=== PATIENT | male | born 1955 | race Caucasian/White ===

== ENCOUNTER 2019-05-07 06:09 | Outpatient (RCR) | payer MEDICAID, SELFPAY | END 2019-05-07 23:59 | disposition home or self-care (01) | LOC: ONCMED 06:09 | PROVIDERS: Family Provider Nurse Practitioner; PCP Licensed Practical Nurse; Visit Provider Internal Medicine Medical Oncology | DX: C22.0 Liver cell carcinoma (principal); Z86.19 Personal history of other infectious and parasitic diseases; K59.00 Constipation, unspecified; M54.9 Dorsalgia, unspecified; N20.0 Calculus of kidney; N40.0 Benign prostatic hyperplasia without lower urinary tract symptoms; Z92.3 Personal history of irradiation; Z86.711 Personal history of pulmonary embolism; Z79.01 Long term (current) use of anticoagulants; Z79.891 Long term (current) use of opiate analgesic; Z79.899 Other long term (current) drug therapy; Z92.21 Personal history of antineoplastic chemotherapy | CPT/HCPCS: 99214 ==

== ENCOUNTER 2019-06-03 16:45 | Emergency (ER) | payer SELFPAY | END 2019-06-03 21:00 | disposition home or self-care (01) | PROVIDERS: Family Provider Nurse Practitioner | DX: K59.00 Constipation, unspecified (principal); I10 Essential (primary) hypertension; Z85.89 Personal history of malignant neoplasm of other organs and systems; Z87.891 Personal history of nicotine dependence; Z88.5 Allergy status to narcotic agent; Z92.21 Personal history of antineoplastic chemotherapy; Z85.05 Personal history of malignant neoplasm of liver | CPT/HCPCS: 74022; 99281 ==

== ENCOUNTER 2019-06-19 08:07 | Outpatient (CLI) | payer MEDICAID, SELFPAY ==
--- NOTE | 2019-06-19 08:17 | MR_ITS ---
WS: [id number] MRI THORACIC SPINE with and without contrast. HISTORY: LIVER CELL CARCINOMA W/BONE METS;RESTAGING EVALUATION COMPARISON: 04/10/2019 TECHNIQUE: Multiplanar sequences are performed in sagittal and axial planes. Pre and post imaging. Patient has known pathological fractures at T6 and T7. Extent of the fractures and tumor involvement has progressed. New metastatic disease within T5, the posterior T8, anterior T9 and T11 vertebral bod ies. There is also enhancement within the superior anterior endplate of L2. Marked increase in thoracic kyphosis centered at the T6-7 level. Significant progression of metastati c involvement within the vertebral bodies, epidural space and paravertebral soft tissues and osseous structures on the RIGHT. Progressive metastatic involvement centered at the RIGHT 6-8 costochondral m argins. Rib and soft tissue involvement. Largest of tissue metastatic necrotic mass measures 5.0 x 6. 2 x 3.9 cm. Involvement of the posterior elements of the RIGHT fifth, sixth, seventh and eighth verte bral bodies with extension into the foramen. Epidural enhancement along the RIGHT lateral margin exte nds over length of 4.4 cm. Mild flattening and deformity of the thecal sac. Soft soft tissue nodular enhancement and compression of the thoracic cord at the T7 level. Tumor nodularity measures 6.7 mm. A dditional bone and soft tissue involvement on the LEFT but to a lesser extent. Notified Tomás Pickard at 06/19/2019 10:56 AM. Unable to reach Dr. Pickard at this time. Message left Iv a, patient navigator at 10:55 AM. MR/MR thoracic spine wo/w [id number] IMPRESSION: 1. Significant progression of metastatic disease to the vertebral bodies, epid ural space and paravertebral soft tissues since 04/10/2019. 2. Metastatic involvement has progressed in T6 since T7 with progression of pa thological fractures. New metastatic disease at T5, T8, T9, T11 and L2. 3. Significant increase in size of the paravertebral mass centered on the RIGH T at T6-T8 now measuring 5.0 x 6.2 x 3.9 cm. 4. Significant progression of epidural involvement by tumor with compression o n the thoracic cord at the T6-7 level.
== END 2019-06-19 08:08 | disposition home or self-care (01) ==
LOC: RADSHAW 08:14 → ONCMED 17:20
PROVIDERS: Family Provider Nurse Practitioner; PCP Nurse Practitioner; Visit Provider Radiology Radiation Oncology
DX: C79.51 Secondary malignant neoplasm of bone (principal); C22.0 Liver cell carcinoma; M84.58XD Pathological fracture in neoplastic disease, other specified site, subsequent encounter for fracture with routine healing
CPT/HCPCS: 72157; 96372; A9579; J1170

== ENCOUNTER 2019-07-04 17:09 | Emergency (ER) | payer MEDICAID, SELFPAY ==
[2019-07-04 18:06] VITALS: BP 105/69; PULSE 118; RESP 20; TEMP 37.2; O2SAT 98; BMI 25.8
--- NOTE | 2019-07-04 18:46 | XR_ITS ---
WS: [id number] Acute abdomen series, 07/04/2019 Clinical Data: constipation Comparison: Acute abdomen series, 06/03/2019. Findings: In the chest there are no nodules or masses. The heart is normal. The pulmonary vascularit y is not increased. The right pleural effusion has diminished. The patient has had stabilizing rods p laced in the thoracic spine extending from T1 to T10. Surgical estella are also visible in the midlin e. The rods are bilateral. No free air is seen beneath the diaphragms. No abnormal intra-abdominal masses or calcifications are seen. There is air in the stomach, small bowel and colon. No obstruction is present. There is fecal m aterial throughout the colon especially in the rectum. XR/XR acute abdomen series [id number] Impression: 1. Decrease in small right effusion 2. Placement of bilateral stabilizing rods in the thoracic spine from T1 throug h T10. 3. Moderate generalized ileus. 4. Fecal material in the rectum.
[2019-07-04 19:09] LABS: Basophils % 0.3 %; Eosinophils % 0.3 %; Hemoglobin 10.4 g/dL (11.7-16.6); Lymphocytes # 0.4 10^3/uL (0.8-4.8); Lymphocytes % 5.4 %; Mean Corpuscular HGB Conc 31.5 g/dL (30.0-36.0); Mean Corpuscular Hemoglobin 28.5 pg (28.0-34.0); Mean Corpuscular Volume 90.4 fL (80-94); Mean Platelet Volume 9.7 fL (7.4-10.4); Monocytes # 0.8 10^3/uL (0.2-0.9); Monocytes % 9.9 %; Neutrophils # 6.5 10^3/uL (1.8-7.7); Neutrophils % 83.6 %; Nucleated Red Blood Cells % 0 %; Platelet Count 154 10^3/cmm (130-400); Red Blood Count 3.65 10^6/uL (4.1-5.3); Red Cell Distribution Width 14.6 % (12.1-15.1); White Blood Count 7.8 10^3/uL (4.0-10.0)
[2019-07-04 19:24] LABS: Alanine Aminotransferase 23 U/L (0-41); Albumin Level 3.2 g/dL (3.5-5.2); Alkaline Phosphatase 277 IU/L (40-130); Anion Gap 15.7 (5-19); Aspartate Amino Transferase 40 U/L (0-40); Blood Urea Nitrogen 10 mg/dL (8-23); Calcium 8.6 mg/dL (8.5-10.5); Carbon Dioxide 21 mmol/L (22-29); Chloride 96 mmol/L (98-107); Globulin 3.5 g/dL (1.3-4.6); Glomerular Filtration Rate 97.6 mL/min (90-130); Glucose 122 mg/dL (74-106); Potassium 4.7 mmol/L (3.5-5.1); Sodium 128 mmol/L (136-145); Total Bilirubin 0.8 mg/dL (0.15-1.2); Total Protein 6.7 g/dL (6.6-8.7)
[2019-07-04 20:01] VITALS: BP 111/67; PULSE 100; RESP 18; TEMP 36.4; O2SAT 99
--- NOTE | 2019-07-04 20:02 | ED_ITS ---
Entered by Arlene Sheth, acting as scribe for Helga Das Marian Jul 04, 2019 17:09 HPI - General Adult General: Chief complaint: General Medical Stated complaint: constipation *10 days Time Seen by Provider: 07/04/19 20:02 Source: patient and family Mode of arrival: ambulatory Limitations: no limitations History of Present Illness: HPI narrative: Mr. Isbell is a very nice 63-year-old male who comes in complaining of abdominal pain and constipation. He had spinal surgery on the of this month and had been covering as expected but he believes secondary to taking oxycodone he has been unable to have regular bowel movements. Patient states he feels very constipated. He denies any bowel or bladder incontinence, saddle anesthesia, numbness or weakne ss in his legs. He denies any fever. He states his back pain is minimal if any. He states his primary concern is that of not having a bowel movement. He is unaware of anything that makes this better or worse. He has a decreased appetite and he has not been vomiting. MD complaint: constipation Onset (ago): day(s) (6 days ago) Location: abdomen Radiation: non-radiation Severity: moderate Quality: constant Pain Consistency: constant Relieving factors: none Exacerbating factors: medication and movement Associated symptoms: Deny chest pain, confusion, diaphoresis, dyspnea, headache(s), malaise, nausea, rash, palpitations, syncope or vomiting Treatments prior to arrival: other (over counter stool softner) Review of Systems General: Reports: other (negative unless marked) Const: Denies: fever, chills, body aches, fatigue, malaise or diaphoresis Eyes: Denies: change in vision or blurry vision ENMT: Denies: throat pain, painful swallowing, hoarseness, ear pain, ear discharge, Change in hearing or nasal discharge Card: Denies: chest pain, palpitations, irregular heart rhythm, syncope, pre- syncope, shortness of breath on exertion or shortness of breath when lying down Resp: Denies: shortness of breath, productive cough, non-productive cough, wheezing, coughing up blood or chest congestion GI: Reports: abdominal pain and constipation; Denies: nausea, vomiting, vomiting blood, coffee grounds in vomit, diarrhea, cramping, blood in stool or black tarry stool : Denies: flank pain, difficulty urinating, painful urination, urinary frequency, urinary urgency, decreased urine ouput, urinary incontinence or blood in urine Musc: Denies: neck pain, back pain, extremity pain, extremity swelling, joint pain, joint swelling, joint warmth or joint stiffness Skin/Breast: Denies: rash, skin tenderness or yellow skin Neuro: Denies: headache, numbness in extremities, weakness in extremities, changes in sensation, lack of coordination, difficulty walking, dizziness, vertigo or confusion Endo: Denies: excessive thirst, tired all the time, cold intolerance, excessive sweating, flushing or hot flashes Abelardo/Lymph: Denies: easy bruising, easy bleeding, petechiae or enlarged lymph nodes All/Imm: Denies: hives, throat swelling, tongue swelling, facial swelling or acute wheezing PFSH ED PFSH: Statuses (acute, chronic, etc) shown below reflect problem list status as previously entered and may not be historically accurate Family History (Updated 06/17/19 @ 15:42 by Domonique Torres, RN) Family/Other CAD (coronary artery disease) Cancer Social History (Updated 06/17/19 @ 15:43 by Domonique Torres, RN) Smoking and tobacco status: never smoked Alcohol intake: never Marital status: Single Current occupational status: retired Physical Exam Const: COMMON NORMALS: no apparent distress, oriented x3, no limitations, healthy appearing and well nourished EXAM LIMITATIONS: no altered mental status GENERAL APPEARANCE: cooperative, well kempt and well developed ORIENTATION/CONSCIOUSNESS: Yes awake HENMT: COMMON NORMALS: normocephalic, head/scalp atraumatic, hearing grossly normal bilaterally, external ears normal, EAC's normal, external nose normal and moist oral mucous membranes HEAD & SCALP: normal to inspection, normocephalic and atraumatic FACE & SINUS: normal facial exam and face symmetric NOSE: external nose normal and nares normal EXTERNAL EAR: Yes external ears normal EXTERNAL AUDITORY CANAL: EAC's normal MOUTH: oral and palatal mucosa normal and tongue normal Eye: COMMON NORMALS: PERRL, EOMs intact bilaterally, conjunctivae normal and no scleral icterus GENERAL EYE: normal appearance of both eyes and normal light reflex CONJUNCTIVA: Yes conjunctivae normal SCLERA: sclerae normal CORNEA: Yes corneas normal PUPIL: Yes PERRL DIRECT OPHTHALMOSCOPY: Yes normal light reflex Neck/C-Spine: COMMON NORMALS: full ROM, no lymphadenopathy, supple, no meningeal signs and no JVD GENERAL: Yes normal visual inspection and Yes trachea midline CERVICAL SPINE: Yes cervical ROM normal Chest: COMMONS NORMALS: inspection of chest normal and palpation of chest normal Resp: COMMON NORMALS: normal respiratory effort, no retractions, no use of accessory muscles and clear to auscultation bilaterally EFFORT & INSPECTION: Yes able to speak in complete sentences AUSCULTATION: clear to auscultation bilaterally Cardio: COMMON NORMALS: no JVD, regular rate, regular rhythm, S1 normal heart sound, S2 normal heart sound, no gallops, no clicks, no murmurs and no rub JUGULAR VENOUS DISTENTION: no JVD RATE: regular rate RHYTHM: regular rhythm HEART SOUNDS: S1 normal and S2 normal GI: COMMON NORMALS: soft to palpation, non-tender, no hepatosplenomegaly and no masses INSPECTION: Yes normal to inspection PALPATION: Yes soft and Yes no hepatosplenomegaly : COMMON NORMALS: Yes no CVA tenderness BLADDER/KIDNEY EXAM: Yes no CVA tenderness Back/Pelvis: COMMON NORMALS: no CVA tenderness, thoracic and lumbar spine normal to inspection, no thoracic nor lumbar tenderness and thoraco-lumbar ROM normal Extremity: COMMON NORMALS: normal to inspection, full ROM, normal capillary refill, no joint enlargement, no clubbing, cyanosis or edema and no calf tenderness Neuro: COMMON NORMALS: oriented x3, CN's II-XII intact bilaterally, moves all extremities, no focal motor deficits and no sensory deficits noted MENINGEAL SIGNS: Yes no meningeal signs Psych: COMMON NORMALS: mental status grossly normal, thought process normal, cooperative, affect normal, speech normal and activity/motor behavior normal APPEARANCE: Yes well kempt SPEECH: Yes normal speech THOUGHT PROCESS: normal thought process Skin: COMMON NORMALS: no rashes or lesions noted, skin turgor normal, no jaundice, no petechiae and no mottling GENERAL SKIN EXAM: no rashes or lesions noted and turgor normal Course Vital Signs: Vital signs: Vital Signs Temperature 97.5 F L 07/04/19 20:01 Pulse Rate 86 07/04/19 22:00 Respiratory Rate 18 07/04/19 22:00 Blood Pressure 115/66 07/04/19 22:00 Pulse Oximetry 98 07/04/19 22:00 MDM - General Adult MDM Narrative: Medical decision making narrative: Mr. Barton is a nice 63-year-old male who comes in complaining of abdominal pain and constipation. He has known metastatic cancer and recently had a surgery to relieve a tumor off his spine. The differential diagnosis for this is extensive including bowel obstruction, constipation, ileus, volvulus, among many others. Based upon his CT he looks to have a severe constipation but there is no sign of obstruction. He has a stable focal narrowing in the proximal sigmoid colon but there is no definite obstruction. There is no sign of appendicitis. The patient thinks that his symptoms are likely caused by his oxycodone which is probably the case. He is also complaining of hemorrhoidal pain. I have given him lactulose here along with Anusol suppositories. The patient agrees to try this at home and also tried mag citrate [id number]. He understands he will probably have to begin MiraLAX daily while he is on the opiate pain medication. I see no sign of acute abdomen or any other life-threatening event at this time. The patient understands though he may get worse and if he does so he will need to return to the ER immediately for recheck. He will follow-up with his regular doctors or return here if he has any problems. At this time his vital signs are stable and his exam is improved and his pain is improved from arrival. Lab Data: Labs: Lab Results 07/04/19 07/04/19 07/04/19 Range/Units 18:55 18:55 18:55 WBC 7.8 (4.0-10.0) 10^3/ uL RBC 3.65 L (4.1-5.3) 10^6/u L Hgb 10.4 L (11.7-16.6) g/dL Hct 33.0 L (42.0-52.0) % MCV 90.4 (80-94) fL MCH 28.5 (28.0-34.0) pg MCHC 31.5 (30.0-36.0) g/dL RDW 14.6 (12.1-15.1) % Plt Count 154 (130-400) 10^3/c mm MPV 9.7 (7.4-10.4) fL Neut % (Auto) 83.6 % Lymph % (Auto) 5.4 % [place] % (Auto) 9.9 % Eos % (Auto) 0.3 % Baso % (Auto) 0.3 % Neut # (Auto) 6.5 (1.8-7.7) 10^3/u L Lymph # (Auto) 0.4 L (0.8-4.8) 10^3/u L [place] # (Auto) 0.8 (0.2-0.9) 10^3/u L Eos # (Auto) 0.0 (0.0-0.8) 10^3/u L Baso # (Auto) 0.0 (0.0-0.1) 10^3/u L Nucleated RBC % (a uto) 0 % Nucleated RBCs # 0.0 /100WBC Sodium 128 L (136-145) mmol/L Potassium 4.7 (3.5-5.1) mmol/L Chloride 96 L (98-107) mmol/L Carbon Dioxide 21 L (22-29) mmol/L Anion Gap 15.7 (5-19) BUN 10 (8-23) mg/dL Creatinine 0.8 (0.7-1.2) mg/dL GFR Calculation 97.6 (90-130) mL/min Glucose 122 H (74-106) mg/dL Calcium 8.6 (8.5-10.5) mg/dL Total Bilirubin 0.8 (0.15-1.2) mg/dL AST 40 (0-40) U/L ALT 23 (0-41) U/L Alkaline Phosphata se 277 H (40-130) IU/L Total Protein 6.7 (6.6-8.7) g/dL Albumin 3.2 L (3.5-5.2) g/dL Globulin 3.5 (1.3-4.6) g/dL Lipase 9 L (13-60) U/L Imaging Data^: CT Abd/Pel: Radiologist's impression: [address] [address] [address] Scan Report Signed Patient: Hernesto Isbell Unit #: [id number] : 1955 Age/Sex: 63 / M ADM Date: 07/04/19 Loc: ER Room/Bed: Attending Dr: Ordering Provider/Ordering MD: Helga Das DO Date of Service: 07/04/19 Procedure(s): CT abdomen pelvis w con* [id number] Accession Number(s): [id number] Report Number: [id number] PROCEDURE INFORMATION: Exam: CT Abdomen And Pelvis With Contrast Exam date and time: 07/04/2019 8:16 PM Age: 63 years old Clinical indication: Abdominal pain; Acute; Prior surgery; Surgery date: <1 month; Surgery type: Back TECHNIQUE: Imaging protocol: Computed tomography of the abdomen and pelvis with intravenous contrast. Total DLP: 513.16 mGy-cm Radiation optimization: All CT scans at this facility use at least one of these dose optimization techniques: automated exposure control; mA and/or kV adjustment per patient size (includes targeted exams where dose is matched to clinical indication); or iterative reconstruction. Contrast material: OMNI; Contrast volume: 95 ml; Contrast route: IV; COMPARISON: CT abdomen pelvis w con* [id number] 04/22/2019 8:34 PM FINDINGS: Pleural space: Right pleural effusion. Dependent atelectasis, right greater than left. Liver: Numerous low-density lesions throughout the liver have increased is size and number, the largest 2.8 cm in the left lobe. Gallbladder and bile ducts: Normal. No calcified stones. No ductal dilation. Pancreas: Normal. No ductal dilation. Spleen: Multiple low-density lesions in the spleen have increased in size and number, the largest 2.1 cm. Adrenals: Normal. No mass. Kidneys and ureters: Normal. No hydronephrosis. Stomach and bowel: Large quantity of stool throughout the colon to the rectum. Focal area of narrowing in the proximal sigmoid colon appears unchanged. The stomach and small bowel are normal. Appendix: The appendix is normal. Intraperitoneal space: Unremarkable. No free air. No significant fluid collection. Vasculature: Unremarkable. No abdominal aortic aneurysm. Lymph nodes: Unremarkable. No enlarged lymph nodes. Bladder: Unremarkable as visualized. Reproductive: Unremarkable as visualized. Bones/joints: Thoracic fusion hardware. No compression fracture. No lytic or blastic skeletal lesions. Soft tissues: Unremarkable. CT/CT abdomen pelvis w con* [id number] IMPRESSION: 1. Significantly worsened metastatic lesions in the liver and spleen. 2. Stable focal narrowing in the proximal sigmoid colon. Underlying neoplasm is not excluded. 3. Large amount of stool throughout the colon to the rectum, consistent with constipation. 4. Right pleural effusion. Radiation Dose CTDIVOL = (mGy): DLP = 513.16 (mGy-cm) Dictated By: Sandeep Rubio Signed By: Sandeep Rubio Signed Date/Time: 07/04/192213 DD/ 12 Discharge Plan Discharge Patient Disposition: Home, Self-Care Clinical Impression: Abdominal pain Qualifiers: Abdominal location: generalized Qualified Code(s): R10.84 - Generalized abdominal pain Constipation Qualifiers: Constipation type: drug induced constipation Qualified Code(s): K59.03 - Drug induced constipation Condition: Stable Prescriptions: New lactulose 20 gram/30 mL solution 30 gm PO DAILY PRN (Reason: constipation) Qty: 1200 RF: 0 Anusol-HC 25 mg suppository 25 mg WA DAILY PRN (Reason: hemorrhoids) Qty: 12 RF: 0 Discharge Orders: Discharge Order (Routine); Ordered 07/04/19 Ordered By: Helga Das Referrals: Mariajose Flores FNP [Family Provider] - 1-3 days Damir Mix MD [Primary Care Provider] - Discharge Diet: Advance as tolerated Discharge Activity: Increase activity as tolerated Patient Instructions: Constipation - Adult, Abdominal Pain (ED) Activity Restrictions/Additional Instructions: Please return to the ER immediately for any of the signs or symptoms listed on your discharge instruction sheets, worsening/changing of your symptoms, you are not getting better as quickly as expected, or for ANY other cause or concerns. If you have not had a bowel movement by tomorrow afternoon be certain to take mag citrate one half bottle to have a bowel movement. If you have not had a bowel movement within 2 hours drink the other half of the bottle. Coding Level of Care Code ED [facility] Attendant for Chg Fwd Exam Problem Focused The documentation recorded by the Domenic lindsey Bridget Annette, accurately reflects the service I personally performed and the decisions made by Thiago kay Eli N Jul 04, 2019 17:09
--- NOTE | 2019-07-04 20:03 | PC.NURSE ---
Introduced self to patient and initiated vital signs. Pt is A&O x 4 and agreeable. Pt states that the reason for the ER visit today is due to constipation. Pt states last BM 6 days ago. Pt also complaining of abdominal pain of 5/10. Reassured patient of needs and will continue to monitor. Awaiting provider at bedside.
--- NOTE | 2019-07-04 20:11 | CTR_ITS ---
PROCEDURE INFORMATION: Exam: CT Abdomen And Pelvis With Contrast Exam date and time: 07/04/2019 8:16 PM Age: 63 years old Clinical indication: Abdominal pain; Acute; Prior surgery; Surgery date: <1 month; Surgery type: Back TECHNIQUE: Imaging protocol: Computed tomography of the abdomen and pelvis with intravenous contrast. Total DLP: 513.16 mGy-cm Radiation optimization: All CT scans at this facility use at least one of these dose optimization techniques: automated exposure control; mA and/or kV adjustment per patient size (includes targeted exams where dose is matched to clinical indication); or iterative reconstruction. Contrast material: OMNI; Contrast volume: 95 ml; Contrast route: IV; COMPARISON: CT abdomen pelvis w con* [id number] 04/22/2019 8:34 PM FINDINGS: Pleural space: Right pleural effusion. Dependent atelectasis, right greater than left. Liver: Numerous low-density lesions throughout the liver have increased is size and number, the largest 2.8 cm in the left lobe. Gallbladder and bile ducts: Normal. No calcified stones. No ductal dilation. Pancreas: Normal. No ductal dilation. Spleen: Multiple low-density lesions in the spleen have increased in size and number, the largest 2.1 cm. Adrenals: Normal. No mass. Kidneys and ureters: Normal. No hydronephrosis. Stomach and bowel: Large quantity of stool throughout the colon to the rectum. Focal area of narrowing in the proximal sigmoid colon appears unchanged. The stomach and small bowel are normal. Appendix: The appendix is normal. Intraperitoneal space: Unremarkable. No free air. No significant fluid collection. Vasculature: Unremarkable. No abdominal aortic aneurysm. Lymph nodes: Unremarkable. No enlarged lymph nodes. Bladder: Unremarkable as visualized. Reproductive: Unremarkable as visualized. Bones/joints: Thoracic fusion hardware. No compression fracture. No lytic or blastic skeletal lesions. Soft tissues: Unremarkable. CT/CT abdomen pelvis w con* [id number] IMPRESSION: 1. Significantly worsened metastatic lesions in the liver and spleen. 2. Stable focal narrowing in the proximal sigmoid colon. Underlying neoplasm is not excluded. 3. Large amount of stool throughout the colon to the rectum, consistent with constipation. 4. Right pleural effusion. Radiation Dose CTDIVOL = (mGy): DLP = 513.16 (mGy-cm)
[2019-07-04 20:35] LABS: Lipase 9 U/L (13-60)
[2019-07-04] MEDS: iohexol 300 mg/mL 50 mL Btl 20 ML PO (20:40)
[2019-07-04] MEDS: sodium chloride 0.9% 1,000 ML 999 ML IV (20:53)
[2019-07-04] MEDS: ondansetron 2 mg/ML SDV 2 mL 4 MG IVP (20:53)
[2019-07-04] MEDS: bisacodyl 10 mg Supp PR (20:53)
[2019-07-04] MEDS: sodium chloride 0.9% 1,000 ML 100 ML IV (20:54)
[2019-07-04] MEDS: morphine 4 mg/mL SDV 1 mL IVP ×2 (20:54→22:57)
[2019-07-04] MEDS: iohexol 300 mg/mL 100 mL Btl 95 ML IV (21:37)
[2019-07-04 22:00] VITALS: BP 115/66; PULSE 86; RESP 18; O2SAT 98
[2019-07-04] MEDS: lactulose oral liq 20 gm/30 mL UDC 30 GM PO (23:15)
[2019-07-04] MEDS: hydrocortisone 2.5% cream 28 gm 1 APPLIC PR (23:15)
[2019-07-05] VITALS: BP 122/84; PULSE 118; RESP 18; O2SAT 98
[2019-07-05 00:22] LABS: Bilirubin Urine Neg (NEGATIVE); Blood Urine Neg (Negative); Glucose Urine UA Norm (Normal); Ketones Urine Negative (Negative); Leukocyte Esterase Urine Negative (Negative); Nitrate Urine Negative (Negative); Protein Urine Neg (Negative); Specific Gravity, Urine 1.015 (1.005-1.030); Urine Appearance Clear (CLEAR); Urine Color Dark Yellow (Yellow); Urobilinogen Urine Norm (Negative); pH Urine 5 (5-7)
[2019-07-05 00:46] LABS: Mucus Urine 4+
[2019-07-05 00:47] LABS: Hyaline Casts Urine 0-4
[2019-07-05 00:48] LABS: Add Urine Culture? No; Transitional Epi Cells Urine 0-4 /hpf
--- NOTE | 2019-07-05 14:05 | DCPLANNER ---
manager functional had message to schedule a follow up appointment for patient with Dr. Mix. manager functional called the office of Dr. Mix, spoke with Liliana, gave clinic patients information. manager functional was told that patients information would be printed and given to Isha for review. Clinic will call patient with appointment information. manager functional will call for appointment information.
--- NOTE | 2019-07-24 15:17 | DCPLANNER ---
completions manager spoke with Shannon at Dr. Wilson office, was told that patient did not want appointment.
--- NOTE | 2019-07-24 15:18 | DCPLANNER ---
manager lpn called Dr. Wilson office, spoke with Shannon about a follow up appointment. manager lpn was told that a follow up appointment had been scheduled, but when clinic called patient to schedule the appointment, patient cancelled the appointment.
== END 2019-07-05 00:25 | disposition home or self-care (01) ==
PROVIDERS: Nurse Practitioner Family; Emergency Provider Emergency Medicine; Family Provider Nurse Practitioner; PCP Urology
DX: K59.03 Drug induced constipation (principal)
CPT/HCPCS: 74022; 74177; 80053; 81001; 83690; 85025; 96360; 96361; 96374; 96375; 96376; 99282; 99284; J2270; J2405; J7030; Q9967

== ENCOUNTER 2019-07-26 08:10 | Emergency (ER) | payer MEDICAID, SELFPAY ==
[2019-07-26] VITALS (7 sets, daily range): BP systolic 95–122; BP diastolic 56–69; PULSE 81–94; RESP 15–18; TEMP 36.8; O2SAT 97–100; BMI 22.6
--- NOTE | 2019-07-26 08:20 | ED_ITS ---
Entered by Radhika Dumont, acting as scribe for Ольга Medellin MD Jul 26, 2019 08:10 HPI - General Adult General: Chief complaint: General Medical Stated complaint: fever,weakness,n/v Time Seen by Provider: 07/26/19 08:19 History of Present Illness: HPI narrative: 63 yo male presents with fever. Pt had a tumor removal on his spine in June. Pt states that he felt weak, coughing, and fell. pts family member states that he has been exposed to sickn ess. Pt states that he is being seen by Dr. Car. Pt isn't eating. complaint: weakness Onset (ago): day(s) Radiation: non-radiation Severity: moderate Associated symptoms: Reports cough and weakness; Deny chest pain, dyspnea, headache(s), nausea, rash or vomiting Review of Systems Const: Reports: fever, body aches and change in appetite; Denies: chills Eyes: Denies: blurry vision or eye discomfort ENMT: Denies: throat pain or dental pain Card: Denies: chest pain Resp: Denies: shortness of breath GI: Denies: abdominal pain, nausea, vomiting or diarrhea : Denies: painful urination Musc: Denies: neck pain or back pain Skin/Breast: Denies: rash Neuro: Denies: headache Psych: Denies: depression Abelardo/Lymph: Denies: easy bruising All/Imm: Denies: hives PFSH ED PFSH: Medical History (Updated 07/26/19 @ 11:07 by Ольга Medellin MD) Bilateral leg paresthesia Liver cell carcinoma Spinal cord tumor Surgical History (Updated 07/26/19 @ 08:24 by Radhika Dumont) H/O hand surgery Family History (Updated 06/17/19 @ 15:42 by Domonique Torres RN) Family/Other CAD (coronary artery disease) Cancer Social History (Updated 06/17/19 @ 15:43 by Domonique Torres, RN) Smoking and tobacco status: former smoker Alcohol intake: never Marital status: Single Current occupational status: retired Physical Exam Const: COMMON NORMALS: no apparent distress, oriented x3 and healthy appearing HENMT: COMMON NORMALS: normocephalic and head/scalp atraumatic HEAD & SCALP: normocephalic and atraumatic Eye: COMMON NORMALS: PERRL and EOMs intact bilaterally PUPIL: Yes PERRL Neck/C-Spine: COMMON NORMALS: full ROM and supple Chest: COMMONS NORMALS: inspection of chest normal and palpation of chest normal Resp: COMMON NORMALS: normal respiratory effort, no retractions, no use of accessory muscles and clear to auscultation bilaterally AUSCULTATION: clear to auscultation bilaterally Cardio: COMMON NORMALS: regular rate, regular rhythm and no murmurs RATE: regular rate RHYTHM: regular rhythm GI: COMMON NORMALS: normal to inspection, nondistended, normoactive bowel sounds, soft to palpation, non-tender and no masses PALPATION: Yes soft Extremity: COMMON NORMALS: normal to inspection and full ROM Neuro: COMMON NORMALS: oriented x3, moves all extremities and no focal motor deficits Psych: COMMON NORMALS: mental status grossly normal, thought process normal and cooperative THOUGHT PROCESS: normal thought process Skin: COMMON NORMALS: no rashes or lesions noted and no wounds GENERAL SKIN EXAM: no rashes or lesions noted Course Vital Signs: Vital signs: Vital Signs Temperature 98.3 F 07/26/19 08:17 Pulse Rate 86 07/26/19 11:44 Respiratory Rate 16 07/26/19 11:44 Blood Pressure 95/56 07/26/19 11:44 Pulse Oximetry 99 07/26/19 11:44 MDM - General Adult MDM Narrative: Medical decision making narrative: Patient presents here with generalized weakness and has a history of cancer. States he just has felt generally weak. He has had no fever. He denies vomiting or diarrhea. Patient was found to have a urinary tract infection likely causing his weakness. He has no signs of sepsis or septic shock. I did have a long discussion with him and family and offered him admission but he states he would like to try treatment at home as he is to follow-up with Dr. Car on Monday. That he had an IV dose of antibiotics here and will prescribe him Keflex for home. Informed if he worsens or has a fever he is return immediately. He understands and agrees to the plan. Lab Data: Labs: Lab Results 07/26/19 07/26/19 07/26/19 Range/Units 08:26 08:51 08:51 WBC 4.1 (4.0-10.0) 10^3/ uL RBC 3.34 L (4.1-5.3) 10^6/u L Hgb 9.5 L (11.7-16.6) g/dL Hct 30.3 L (42.0-52.0) % MCV 90.7 (80-94) fL MCH 28.4 (28.0-34.0) pg MCHC 31.4 (30.0-36.0) g/dL RDW 16.5 H (12.1-15.1) % Plt Count 131 (130-400) 10^3/c mm MPV 9.3 (7.4-10.4) fL Neut % (Auto) 78.8 % Lymph % (Auto) 11.8 % [place] % (Auto) 7.7 % Eos % (Auto) 1.0 % Baso % (Auto) 0.5 % Neut # (Auto) 3.3 (1.8-7.7) 10^3/u L Lymph # (Auto) 0.5 L (0.8-4.8) 10^3/u L [place] # (Auto) 0.3 (0.2-0.9) 10^3/u L Eos # (Auto) 0.0 (0.0-0.8) 10^3/u L Baso # (Auto) 0.0 (0.0-0.1) 10^3/u L Nucleated RBC % (a uto) 0 % Nucleated RBCs # 0.0 /100WBC Sodium 130 L (136-145) mmol/L Potassium 4.2 (3.5-5.1) mmol/L Chloride 95 L (98-107) mmol/L Carbon Dioxide 22 (22-29) mmol/L Anion Gap 17.2 (5-19) BUN 7 L (8-23) mg/dL Creatinine 1.0 (0.7-1.2) mg/dL GFR Calculation 75.5 L (90-130) mL/min Glucose 108 (65-115) mg/dL Calcium 8.4 L (8.5-10.5) mg/dL Total Bilirubin 1.5 H (0.15-1.2) mg/dL AST 59 H (0-40) U/L ALT 18 (0-41) U/L Alkaline Phosphata se 252 H (40-130) IU/L Total Protein 6.7 (6.6-8.7) g/dL Albumin 2.7 L (3.5-5.2) g/dL Globulin 4.0 (1.3-4.6) g/dL Lipase 6 L (13-60) U/L Urine Color (Yellow) Urine Appearance (CLEAR) Urine pH (5-7) Ur Specific Gravit y (1.005-1.030) Urine Protein (Negative) Urine Glucose (UA) (Normal) Urine Ketones (Negative) Urine Blood (Negative) Urine Nitrate (Negative) Urine Bilirubin (NEGATIVE) Urine Urobilinogen (Negative) mg/dL Ur Leukocyte Rhianna ase (Negative) Urine RBC (0-2) /hpf Urine WBC (0-5) /hpf Ur Squamous Epith Cells (0-5) Urine Bacteria (NONE) Urine Mucus Influenza Type A A g Negative (Negative) POC Influenza B Ag Negative (Negative) 07/26/19 Range/Units 10:33 WBC (4.0-10.0) 10^3/ uL RBC (4.1-5.3) 10^6/u L Hgb (11.7-16.6) g/dL Hct (42.0-52.0) % MCV (80-94) fL MCH (28.0-34.0) pg MCHC (30.0-36.0) g/dL RDW (12.1-15.1) % Plt Count (130-400) 10^3/c mm MPV (7.4-10.4) fL Neut % (Auto) % Lymph % (Auto) % [place] % (Auto) % Eos % (Auto) % Baso % (Auto) % Neut # (Auto) (1.8-7.7) 10^3/u L Lymph # (Auto) (0.8-4.8) 10^3/u L [place] # (Auto) (0.2-0.9) 10^3/u L Eos # (Auto) (0.0-0.8) 10^3/u L Baso # (Auto) (0.0-0.1) 10^3/u L Nucleated RBC % (a uto) % Nucleated RBCs # /100WBC Sodium (136-145) mmol/L Potassium (3.5-5.1) mmol/L Chloride (98-107) mmol/L Carbon Dioxide (22-29) mmol/L Anion Gap (5-19) BUN (8-23) mg/dL Creatinine (0.7-1.2) mg/dL GFR Calculation (90-130) mL/min Glucose (65-115) mg/dL Calcium (8.5-10.5) mg/dL Total Bilirubin (0.15-1.2) mg/dL AST (0-40) U/L ALT (0-41) U/L Alkaline Phosphata se (40-130) IU/L Total Protein (6.6-8.7) g/dL Albumin (3.5-5.2) g/dL Globulin (1.3-4.6) g/dL Lipase (13-60) U/L Urine Color [place] (Yellow) Urine Appearance Cloudy (CLEAR) Urine pH 5.0 (5-7) Ur Specific Gravit y 1.025 (1.005-1.030) Urine Protein 1+ H (Negative) Urine Glucose (UA) Norm (Normal) Urine Ketones 1+ H (Negative) Urine Blood Neg (Negative) Urine Nitrate Positive H (Negative) Urine Bilirubin 1+ H (NEGATIVE) Urine Urobilinogen 4 H (Negative) mg/dL Ur Leukocyte Rhianna ase Negative (Negative) Urine RBC None (0-2) /hpf Urine WBC Rare (0-5) /hpf Ur Squamous Epith Cells Rare (0-5) Urine Bacteria 4+ H (NONE) Urine Mucus 1+ Influenza Type A A g (Negative) POC Influenza B Ag (Negative) Discharge Plan Discharge Patient Disposition: Home, Self-Care Clinical Impression: Urinary tract infection Qualifiers: Urinary tract infection type: acute cystitis Hematuria presence: without hematuria Qualified Code(s): N30.00 - Acute cystitis without hematuria Condition: Stable Prescriptions: New Keflex 500 mg capsule 500 mg PO Q6H 7 Days Qty: 28 RF: 0 No Action Zofran 4 mg Tablet 4 - 8 mg PO Q6H PRN (Reason: Nausea) RF: 0 Senna-S 8.6-50 mg Tablet 2 tab PO BID PRN (Reason: Constipation) RF: 0 oxycodone 15 mg Tablet 30 mg PO Q4H RF: 0 alprazolam 0.5 mg Tablet 0.5 mg PO TID PRN (Reason: Anxiety) RF: 0 Protonix 40 mg Tablet,Delayed Release (Dr/Ec) 40 mg PO DAILY RF: 0 Dulcolax Stool Softener (dss) 100 mg Capsule 100 mg PO PRN PRN (Reason: Constipation) RF: 0 metoprolol tartrate 25 mg Tablet 25 mg PO BID RF: 0 Amitiza 24 mcg Capsule 24 mcg PO BID RF: 0 Eliquis 2.5 mg Tablet 2.5 mg PO BID RF: 0 Discharge Orders: Discharge Order (Routine); Ordered 07/26/19 Ordered By: Ольга Medellin Referrals: Mariajose Flores FNP [Primary Care Provider] - Discharge Diet: Advance as tolerated Discharge Activity: Resume usual activity Patient Instructions: Urinary Tract Infection in Women (ED) Discharge Date/Time: 07/26/19 11:46 Coding Level of Care Code ED Conference Translator for Chg Fwd Exam Comprehensive The documentation recorded by the Tim lindsey Kialy, accurately reflects the service I personally performed and the decisions made by Lacie kay Korby, MD Jul 26, 2019 08:10
--- NOTE | 2019-07-26 08:23 | XR_ITS ---
WS: [id number] XR chest 1V portable [id number] REASON FOR EXAM: cough FINDINGS: Zapien bars are seen transversing the thoracic spine. In the right lung base there is a patchy infiltrate present. The remaining lung leija are well aerated. The heart was normal. XR/XR chest 1V portable [id number] IMPRESSION: Patchy infiltrate right lung base.
[2019-07-26] MEDS: sodium chloride 0.9% 1,000 ML 999 ML IV ×2 (08:53→09:53)
[2019-07-26] MEDS: ondansetron 2 mg/ML SDV 2 mL 4 MG IVP (08:55)
[2019-07-26] MEDS: oxyCODONE-APAP 10-325 mg Tablet 1 TAB PO (08:57)
[2019-07-26 09:00] LABS: Basophils % 0.5 %; Hematocrit 30.3 % (42.0-52.0); Hemoglobin 9.5 g/dL (11.7-16.6); Lymphocytes # 0.5 10^3/uL (0.8-4.8); Lymphocytes % 11.8 %; Mean Corpuscular HGB Conc 31.4 g/dL (30.0-36.0); Mean Corpuscular Hemoglobin 28.4 pg (28.0-34.0); Mean Corpuscular Volume 90.7 fL (80-94); Mean Platelet Volume 9.3 fL (7.4-10.4); Monocytes # 0.3 10^3/uL (0.2-0.9); Monocytes % 7.7 %; Neutrophils # 3.3 10^3/uL (1.8-7.7); Neutrophils % 78.8 %; Nucleated Red Blood Cells % 0 %; Platelet Count 131 10^3/cmm (130-400); Red Blood Count 3.34 10^6/uL (4.1-5.3); Red Cell Distribution Width 16.5 % (12.1-15.1); White Blood Count 4.1 10^3/uL (4.0-10.0)
[2019-07-26 09:11] LABS: Influenza A by IFA Negative (Negative); Influenza B by IFA Negative (Negative)
[2019-07-26 09:12] LABS: Alanine Aminotransferase 18 U/L (0-41); Albumin Level 2.7 g/dL (3.5-5.2); Alkaline Phosphatase 252 IU/L (40-130); Anion Gap 17.2 (5-19); Aspartate Amino Transferase 59 U/L (0-40); Blood Urea Nitrogen 7 mg/dL (8-23); Calcium 8.4 mg/dL (8.5-10.5); Carbon Dioxide 22 mmol/L (22-29); Chloride 95 mmol/L (98-107); Glomerular Filtration Rate 75.5 mL/min (90-130); Glucose 108 mg/dL (65-115); Lipase 6 U/L (13-60); Potassium 4.2 mmol/L (3.5-5.1); Sodium 130 mmol/L (136-145); Total Bilirubin 1.5 mg/dL (0.15-1.2); Total Protein 6.7 g/dL (6.6-8.7)
[2019-07-26 10:57] LABS: Glucose Urine UA Norm (Normal); Ketones Urine 1+ (Negative); Protein Urine 1+ (Negative); Specific Gravity, Urine 1.025 (1.005-1.030); Urine Appearance Cloudy (CLEAR); Urine Color Orange (Yellow)
[2019-07-26 10:58] LABS: Add Urine Microscopic? YES; Bilirubin Urine 1+ (NEGATIVE); Blood Urine Neg (Negative); Leukocyte Esterase Urine Negative (Negative); Nitrate Urine Positive (Negative); Urobilinogen Urine 4 mg/dL (Negative)
[2019-07-26 11:08] LABS: Add Urine Culture? Yes; Bacteria Urine 4+; Mucus Urine 1+; Squamous Epithelial Cell Urine RARE (0-5); WBC Urine RARE /hpf (0-5)
[2019-07-26] MEDS: cefTRIAXone 1,000 MG in sodium chloride 0.9% (plus) 50 ML 100 MG IV (11:24)
== END 2019-07-26 11:46 | disposition home or self-care (01) ==
PROVIDERS: Emergency Provider Emergency Medicine; Family Provider Nurse Practitioner; PCP Nurse Practitioner
DX: N39.0 Urinary tract infection, site not specified (principal); Z87.891 Personal history of nicotine dependence
CPT/HCPCS: 36415; 71045; 80053; 81001; 83690; 85025; 87077; 87086; 87186; 87804; 96360; 96361; 96365; 96375; 99283; A9270; J0696; J2405; J7030

== ENCOUNTER 2019-07-30 10:16 | Outpatient (CLI) | payer SELFPAY ==
[2019-07-30] MEDS: HYDROmorphone 1 mg/mL INJ 1 mL 2 MG SUBCUT (11:22)
--- NOTE | 2019-07-30 19:37 | ONC FU_ITS ---
Dr. Car Patient Follow-Up Note Patient: Hernesto Isbell Unit #: [id number]: 1955 Dicatated By: Eloy Car M.D.Date of Visit:Jul 30, 2019 Onc Med Follow-up/Prog Note Chief Complaint: Hepatocellular carcinoma. History of Present Illness: This is a 63 year-old man with hepatocellular carcinoma in association with hepatitis C. He had presented to Dr. Claudio in February 2013 for treatment of hepatitis C. His quantitative hepatitis C RNA at that time was [id number] IUs/mL with an IU log10 of 6.3. His alpha-fetoprotein level was slightly above normal range at 8.2 ng/mL. A previous liver ultrasound form August 2012 showed coarse heterogeneous liver parenchyma suggestive of diffuse hepatocellular disease, but there was no evidence of focal liver mass. Repeat ultrasound on 02/22/13 showed a new hypoechoic solid appearing focus measuring 1.8 x 2.0 x 2.5 cm located adjacent to the gallbladder fossa. CT of the abdomen/pelvis from 03/01/13 showed an irregular mass within the right lobe of the liver immediately adjacent to the gallbladder bed. It measured 1.7 x 1.4 x 1.6 cm. There are several additional very subtle foci of decreased parenchymal enhancement involving the right lobe of the liver, one centrally measuring 1.1 cm, and another near the dome measuring 0.7 cm, similar adjacent lesion measuring 0.7 cm, as well as other potentially smaller lesions measuring 0.5 cm in diameter or less. The appearance was felt to be suspicious for multifocal hepatocellular carcinoma or metastatic involvement from other primary malignancy. There was no abnormal adenopathy or other evidence of metastatic involvement on that study. On 03/14/[address]-guided needle biopsy of the liver mass. Pathology was consistent with well differentiated hepatocellular carcinoma. There was focal overexpression of CD34 with focally positive staining for Glypican 3 in those same areas. CD10 was noted to be positive with a canalicular pattern and the hepatocyte antigen staining was positive. The trichrome stain showed diffuse fibrosis with rare regenerative nodules. I had seen him initially in April 2013 and following that visit he was referred to [facility] for further management of the hepatocellular carcinoma. He was evaluated for transplant, and he apparently was placed on the transplant list. In the meantime, he underwent a chemoembolization procedure on 07/09/2013. He subsequently did receive treatment for the hepatiis C, which he completed in February 2014. The PCR for hepatitis C viral RNA at that point was undetectable. MRI of the abdomen in March 2014 showed a single nonenhancing focus of hepatocellular carcinoma adjacent to the gallbladder in the right lobe of the liver. It showed no enhancement on post contrast sequences. It measured 12 x 10 mm compared to a 14 x 13 mm on the previous study from August 2013. There was no evidence of disease progression. He was seen for a follow-up visit on 08/25/2014. Subsequent to that visit he had failed to return for follow-up. He did have a repeat MRI of the abdomen on 02/02/2015 and it showed stable findings with residual focus in the liver measuring 1.3 cm. He apparently had been in good health prior to the discovery of the hepatitis C. He has a history of nephrolithiasis, and he has benign prostatic hypertrophy. He has had chronic back pain following a back injury in 2011. He had smoked in the past, but he quit smoking more than 20 years ago. He does chew tobacco, though, and he generally drinks 1 or 2 light beers every evening. INTERIM HISTORY: On 07/20/2018 he presented to the emergency room with back pain. At the time he indicated that it had started about 2 months earlier. His evaluation included a contrast-enhanced CT of the abdomen/pelvis which showed a new subtle low-attenuation focus in the right medial hepatic lobe measuring 2.4 x 1.8 cm. There was a densely calcified mass in the right hepatic lobe adjacent to the gallbladder measuring 15 mm, unchanged from the prior study from August 2013. The reported differential for the new lesion included focal fatty infiltration and neoplasm. MRI was suggested for further evaluation. I had seen him for a follow-up visit on 08/06/2018. At that time he complained of severe pain in the mid back area to the right of the midline. Further evaluation with MRI of the thoracic spine on 08/17/2018 showed a right paraspinous mass lesion at T7 with associated involvement of the origin of the right seventh rib. Also noted was subacute anterior superior T6 compression fracture at 25%. Metastatic involvement was not excluded. His AFP level had increased to 13.6 ng/mL compared to 5.8 ng/mL in January 2015. With those findings, he was referred to Dr. Pickard and he underwent palliative radiation to the paraspinous lesion. He completed treatment on 09/21/2018 to a total dose of 3000 cGy. He had a good clinical response. His CT scans of the chest, abdomen, and pelvis on 09/25/2018 showed hazy micronodular groundglass infiltrates within the right upper and lower lobes, lingula, and left lung base. The reported differential included infectious or inflammatory etiologies, but metastatic disease was not entirely excluded. There was no mediastinal or hilar lymphadenopathy. The 1.7 cm calcified mass adjacent to the gallbladder fossa appeared stable. An ill defined low attenuation right hepatic lobe lesion along the undersurface of the liver measuring 2.7 cm also appeared unchanged. There was no evidence of progressive disease in the abdomen or pelvis. Restaging CT scans of the chest, abdomen, and pelvis on 10/25/2018 showed resolved right upper, lingular, and bilateral lower lobe groundglass nodules. There was interval bilateral lower lobe superior segment mixed groundglass and interstitial opacity, suggestive of postinfectious or inflammatory process. Also noted was interval left lower lobe nonocclusive pulmonary emboli. With that finding, he was started on anticoagulation with apixaban. In the absence of any other identifiable areas of metastatic involvement, he then underwent SBRT to the hepatic lesion, completed on 01/18/2019 to a total dose of 4800 cGy. On 03/07/2019 he began a trial of systemic therapy with lenvatinib 12 mg daily. At his 2-week follow-up visit it was put on hold due to multiple side effects including fatigue, anorexia, nausea, headache, and hypertension. Since then his pain has worsened significantly. He has been seen by Dr. Ryan, and he was then referred to a physician in [place] for a kyphoplasty procedure. I don't think that appointment ever got scheduled. A repeat thoracic MRI on 06/19/2019 showed significant progression of metastatic disease to the vertebral bodies, epidural space, and paravertebral soft tissues compared to the 04/10/2019 study. This included significant increase in the size of paravertebral mass centered on the right at T6-T8 measuring 5.0 x 6.2 x 3.9 cm and significant progression of epidural involvement by tumor with compression of the thoracic cord at the T6-7 level. He subsequently was admitted to [facility] for palliative surgery. On 06/23/2019 he underwent decompressive laminectomies at T5, T6, and T7 with resection of epidural spinal tumor at T6/T7. He had no complications with the procedure, and he was discharged home in stable condition on 06/28/2019. He is seen now for a follow-up visit. Despite the surgery he has continued to have severe pain in the mid to upper back, though it is somewhat episodic. He is getting relief with 15 mg immediate release oxycodone in combination with alprazolam. His daughters have been assisting with his care, and they have had to limit the immediate release oxycodone dosage to 1-1/2 tablets because he does get [employer] side effects at 30 mg. He has previously had poor tolerance for other opiate pain medications including fentanyl and morphine. He has tolerated hydromorphone somewhat better, least in small dosages, though he has preferred to use the oxycodone. He has very limited activity. His ECOG score is 3. His appetite is lousy. He has had low-grade fever off and on in the range of 99 to 100 degrees. He occasionally has sweating. He has had shortness of breath at times and he occasionally has wheezing. He has been spitting up clear phlegm. He has discomfort in his chest with coughing. He has occasional dry heaves. He has ongoing problems with constipation. He was having difficulty voiding, that has improved since he was given antibiotic for urinary tract infection. Medications: Acidophilus 1 Capsule Oral daily, Amitiza 1 Capsule (of 24 mcg) Oral b.i.d., Cephalexin 1 Capsule (of 500 mg) Oral q 6 hours PRN, Docusate Sodium 1 Tablet (of 100 mg) Oral PRN, Eliquis 1 Tablet (of 2.5 mg) Oral b.i.d., Metoprolol Tartrate 1 Tablet (of 25 mg) Oral b.i.d., Ondansetron HCl 1 Tablet (of 4 mg) Oral four times a day PRN, oxyCODONE HCl 1 Tablet (of 15 mg) Oral q 6 hours PRN, PriLOSEC 1 Capsule (of 40 mg) Capsule Delayed Release Oral daily, Sennosides-Docusate Sodium 2 Capsule (of 8.6-50 mg) Oral b.i.d. Allergies: Ciprofloxacin HCl, Codeine Sulfate, and fentaNYL. Review of Systems: Constitutional - His energy is low. He is up some at home. His appetite is not good and his weight is down. He has had low-grade fevers off and on. He has occasional chills and sweating. ECOG score is 2, ENMT - No sinus congestion/drainage. No mouth sores. He has dry mouth and throat. No sore throat or difficulty swallowing. He has been having trouble with his left ear. He cannot hear out of the left ear, Hematologic/Lymphatic - No abnormal bruising or bleeding, Respiratory - No shortness of breath. He has a cough that produces clear phlegm. No pleuritic pain or hemoptysis, Cardiovascular - No angina pain. No palpitations, Gastrointestinal - He has dry heaves. No heartburn or acid reflux. He has constipation. His last bowel movement was 3 days ago. No blood in the stool or black stools, Genitourinary (M) - No dysuria or hematuria. No urinary frequency. No urgency or incontinence. He went to ER because he was not urinating. He had a UTI and was treated for that. He has not had any other symptoms since, Musculoskeletal - He is having severe pain in his back and ribs on the right side. He is only able to sleep on his back or his left side, Integumentary - No skin complications, Neurologic - No headache or dizziness. No numbness/paresthesias or other focal neurologic symptoms, Psychiatric - No anxiety or depression. No insomnia. Vital Signs: Performed on Jul 30, 2019 10:42 Height - 66.00 in Weight - lbs Temperature - 99.4 F (HIGH) Pulse - 115 /min (HIGH) Respiration - 26 /min BP - 104/71 mm(hg) O2 Sat - 99 % Pain - 10 Physical Examination: Constitutional - He appears generally weak and he is in significant discomfort, Eyes - Sclerae nonicteric. Conjunctivae clear, ENMT - No lesions noted in the oral cavity, Hematologic/Lymphatic - No cervical, clavicular, or axillary adenopathy, Respiratory - Lungs sound clear with diminished breath sounds bilaterally, Cardiovascular - Heart rhythm is regular. There is a mild tachycardia. There is no murmur, gallop, or rub noted, Abdomen - Mildly distended. Liver and spleen are not enlarged. There is no abdominal mass or ascites noted and there is no inguinal adenopathy, Extremities - Mild lower extremity edema, Neurologic - There are no focal neurologic deficits noted. Lab/Imaging: Laboratory studies from 07/26/2019 included CBC showing hemoglobin 9.5 g, white blood cell count 4100, and platelet count 131,000. CHEM profile showed normal renal function with BUN 7 and creatinine 1.0 mg/dL. Bilirubin was slightly elevated at 1.5 mg/dL with alkaline phosphatase elevated at 252/130 IU/L. Impression: 1. Patient with well differentiated hepatocellular carcinoma, confirmed by needle biopsy of the liver on 03/14/2013. By clinical evaluation his disease appeared to be stage I (T1, N0, M0). 2. He underwent chemoembolization on 07/09/2013. He appeared to have a good response by follow-up CT/MRI. 3. He completed treatment for hepatitis C in February 2014. His other medical illnesses include: 4. He has a history of chronic back pain. 5. Nephrolithiasis. 6. Benign prostatic hypertrophy. He had presented in August 2018 with severe pain in the mid to lower thoracic area. The pain had a radicular component. Further evaluation with MRI of the thoracic spine showed a right paraspinous lesion at T7 with associated involvement of the origin of the right seventh rib. His AFP tumor marker had increased significantly, to 13.6 ng/mL compared to 5.8 ng/mL in January 2015. With those findings, he underwent palliative radiation to the paraspinous lesion, completed on 09/21/2018 to a total dose of 3000 cGy. He appeared to have had a good clinical response to the radiation. His restaging CT scans in September showed multilobar groundglass pulmonary opacities. His repeat CT scans on 10/25/2018 did show improvement in the pulmonary opacities, but there was an incidental finding of left lower lobe nonocclusive pulmonary emoboli. The abdomen/pelvis showed stable medial right hepatic lobe peripheral enhancing lesion measuring 2.9 x 2.6 cm. There was no evidence of other metastatic disease. He began anticoagulation with apixaban, and he then underwent SBRT to the right hepatic lobe lesion, completed on 01/18/2019 to a total dose of 4800 cGy. On 03/07/2019 began a trial of systemic therapy with lenvatinib 12 mg daily. At his 2-week follow-up visit it was put on hold due to multiple side effects including fatigue, anorexia, nausea, and hypertension. During subsequent followup his back pain had worsened significantly. He was seen by Dr. Ryan, and he was referred for a kyphoplasty procedure. In the meantime, his pain continued to worsen. A repeat thoracic spine MRI on 06/19/2019 showed significant worsening of metastatic disease, most significantly at the T6-T8 level. He was then admitted to [facility] in [place] where he underwent palliative decompressive laminectomy and resection of epidural tumor on 06/24/2019. He had no complications with the procedure. He was discharged home on 06/28/2019. Unfortunately, despite the surgery, he has continued to have significant pain associated with thoracic spine metastatic disease. His performance status is very poor. His management has been somewhat problematic due to poor tolerance for opiate pain medication. Plan: He will now be given a prescription for extended release oxycodone 30 mg every 12 hours and he will continue immediate release oxycodone 15 mg as needed for breakthrough pain. He also continues alprazolam as needed. We discussed further management of the cancer. I think it is very unlikely that he would tolerate a TKI at a sufficient dosage to have any benefit. The likelihood of benefit with immunotherapy is also going to be low. At best it may delay disease progression but it would not be expected to provide any symptomatic improvement. With that in mind we also discussed the option of continuing symptomatic/supportive care with Hospice. They are agreeable. Signed By: Eloy Cra M.D. <<Signature on File>>
== END 2019-07-30 10:17 | disposition home or self-care (01) ==
LOC: ONCMED 10:17
PROVIDERS: Family Provider Nurse Practitioner; PCP Nurse Practitioner; Visit Provider Internal Medicine Medical Oncology
DX: C79.51 Secondary malignant neoplasm of bone (principal); C22.0 Liver cell carcinoma; G89.3 Neoplasm related pain (acute) (chronic); N40.0 Benign prostatic hyperplasia without lower urinary tract symptoms; F17.220 Nicotine dependence, chewing tobacco, uncomplicated; F10.20 Alcohol dependence, uncomplicated; K59.00 Constipation, unspecified; Z79.899 Other long term (current) drug therapy; Z79.891 Long term (current) use of opiate analgesic; Z86.19 Personal history of other infectious and parasitic diseases; Z87.442 Personal history of urinary calculi; Z87.440 Personal history of urinary (tract) infections; Z92.3 Personal history of irradiation
CPT/HCPCS: 96372; 99214; J1170